=== PATIENT | female | born 2000 | race Caucasian/White ===

== ENCOUNTER 2018-12-09 16:32 | Emergency (ER) | payer OTHER ==
[2018-12-09] MEDS ORDERED: BENADRYL 50 MG/ML IM ONE (16:51)
--- NOTE | 2018-12-09 17:02 | ERPHSYRPT ---
- History of Present Illness Time Seen by Provider: 12/09/18 16:55 Source: patient Exam Limitations: clinical condition Physician History: PATIENT AWAKENED WITH RASH AND ITCHING. DENIES DIFFICULTY BREATHING OR SWALLOWING. HAS UNKNOWN EXPOSURE. HAS HAD RECENT POSITIVE URINE TEST. HAS HAD MINIMAL RESPONSE TO HYDROCORTISONE CREAM. Timing/Duration: today Quality: itchy Severity: moderate Location: torso, extremities Possible Causes: no cause identified Modifying Factors: Improves With: topical steriods Associated Symptoms: change in skin texture Allergies/Adverse Reactions: No Known Drug Allergies Allergy (Unverified 12/09/18 16:43) Home Medications: No Reportable Medications [No Reported Medications] 12/09/18 [History] - Review of Systems Constitutional: No Symptoms, No Fever, No Chills Eyes: No Symptoms Ears, Nose, & Throat: No Symptoms Respiratory: No Symptoms, No Cough, No Dyspnea Cardiac: No Symptoms, No Chest Pain, No Edema, No Syncope Abdominal/Gastrointestinal: Constipation, No Abdominal Pain, No Nausea, No Vomiting, No Diarrhea Genitourinary Symptoms: No Symptoms, No Dysuria Musculoskeletal: No Symptoms, No Back Pain, No Neck Pain Skin: Skin Lesions, No Rash Neurological: No Dizziness, No Focal Weakness, No Sensory Changes Psychological: No Symptoms Endocrine: No Symptoms All Other Systems: Reviewed and Negative - Nursing Vital Signs Nursing Vital Signs: Initial Vital Signs Temperature 98.5 F 12/09/18 16:37 Pulse Rate 101 H 12/09/18 16:37 Respiratory Rate 16 12/09/18 16:37 Blood Pressure 103/73 12/09/18 16:37 O2 Sat by Pulse Oximetry 97 12/09/18 16:37 Pain Scale Pain Intensity 0 - Physical Exam General Appearance: no apparent distress Eye Exam: PERRL/EOMI Ears, Nose, Throat Exam: normal ENT inspection Neck Exam: normal inspection Respiratory Exam: normal breath sounds Cardiovascular Exam: regular rate/rhythm Back Exam: normal inspection Extremity Exam: normal inspection, normal range of motion Neurologic Exam: alert, oriented x 3 Skin Exam: other (RAISED ERYTHEMATOUS LESIONS OVER LEGS) Ordered Tests: Active Orders 24 hr Category Date Time Status HCG,QUALITATIVE URINE Stat Lab 12/09/18 17:15 Completed UA W/RFX UR CULTURE Stat Lab 12/09/18 17:15 Completed Medication Summary Discontinued Medications Generic Name Dose Route Start Last Admin Trade Name Freq PRN Reason Stop Dose Admin Diphenhydramine HCl 50 mg 12/09/18 16:51 12/09/18 17:12 Benadryl 50 Mg/Ml IM 12/09/18 16:52 50 mg STAT ONE Administration Diphenhydramine HCl Confirm 12/09/18 17:05 Benadryl 50 Mg/Ml Administered 12/09/18 17:06 Dose 50 mg .ROUTE .STK-MED ONE Lab/Rad Data: Laboratory Results 12/09/18 12/09/18 Range/Units 17:15 17:15 Urine Color JUAN (YELLOW) Urine Appearance SLIGHTLY CLOUDY (CLEAR) Urine pH 6.0 (5-6) Ur Specific [place] 1.023 (1.005-1.025) Urine Protein 30 (Negative) Urine Ketones TRACE (NEGATIVE) Urine Blood NEGATIVE (0-5) Guillermo/ul Urine Nitrite NEGATIVE (NEGATIVE) Urine Bilirubin NEGATIVE (NEGATIVE) Urine Urobilinogen 4 (0-1) mg/dL Ur Leukocyte Esterase NEGATIVE (NEGATIVE) Urine WBC (Auto) 3-5 (0-5) /HPF Urine RBC (Auto) 11-15 (0-2) /HPF U Epithel Cells (Auto) FEW (FEW) /HPF Urine Bacteria (Auto) RARE (NEGATIVE) /HPF Urine Mucus (Auto) SLIGHT (NEGATIVE) /HPF Urine Culture Reflexed NO (NO) Urine Glucose NEGATIVE (NEGATIVE) mg/dL Urine HCG, Qual POSITIVE (Negative) - Progress Progress Note: 12/09/18 17:02 BENADRYL 50MG IM 12/09/18 18:21, URINE NEGATIVE, POSITIVE URINE PREG Counseled pt/family regarding: lab results, diagnosis, need for follow-up - Departure Departure Disposition: Home, Extended Care Facility Clinical Impression: ALLERGIC REACTION, Condition: Stable Critical Care Time: No Referrals: MAXWELL PAN [Primary Care Provider] - Additional Instructions: TAKE OVER THE COUNTER BENADRYL 50MG EVERY 4 HOURS FOR ITCHING. CONSULT YOUR PRIMARY CARE PROVIDER FOR EVALUATION OF RASH AND .
[2018-12-09] MEDS ORDERED: BENADRYL 50 MG/ML ONE (17:05)
[2018-12-09 17:16] VITALS: O2SAT 98
[2018-12-09 17:58] LABS: Appearance SLIGHTLY CLOUDY (CLEAR); Bacteria RARE /HPF (NEGATIVE); Bilirubin NEGATIVE (NEGATIVE); Blood NEGATIVE Ery/ul (0-5); Epithelial Cells FEW /HPF (FEW); Glucose NEGATIVE (NEGATIVE); Ketones TRACE (NEGATIVE); Leukocyte Esterase NEGATIVE (NEGATIVE); Mucus SLIGHT /HPF (NEGATIVE); Nitrite NEGATIVE (NEGATIVE); Protein,Urine Dip 30 (Negative); Specific Gravity 1.023 (1.005-1.025); Urobilinogen 4 mg/dL (0-1)
[2018-12-09 18:31] VITALS: BP 112/60; PULSE 84
== END 2018-12-09 18:32 | disposition home or self-care (01) ==
LOC: ED 16:32
DX: R21 Rash and other nonspecific skin eruption (principal); T78.40XA Allergy, unspecified, initial encounter; Z33.1 Pregnant state, incidental
CPT/HCPCS: 81001; 84703; 96372; 99283; J1200

== ENCOUNTER 2019-02-14 15:31 | Emergency (ER) | payer OTHER | END 2019-02-14 16:00 | disposition left against medical advice (07) | LOC: ED 15:31 | DX: Z53.9 Procedure and treatment not carried out, unspecified reason (principal) | CPT/HCPCS: 99281 ==

== ENCOUNTER 2019-02-27 18:06 | Emergency (ER) | payer OTHER ==
--- NOTE | 2019-02-27 18:35 | ERPHSYRPT ---
- History of Present Illness Source: patient Exam Limitations: no limitations Physician History: Patient has had dysuria and bilateral lower abdominal discomfort for the past 20 hours. Patient is with LMP 10/25/2018. Timing/Duration: hour(s) (20) Activites at Onset: none Quality: aching Onset Location: suprapubic Pain Radiation: none Severity of Pain-Max: moderate Severity of Pain-Current: moderate Prior abdominal problems: none Sexual intercourse history: single partner Modifying Factors: Improves With: nothing Associated Symptoms: abdominal pain, dysuria, , No fever, No chills, No diaphoresis, No nausea, No vomiting, No polyuria, No urinary frequency, No loss of bladder control, No lower back pain, No swelling, No syncope, No vaginal discharge, No vaginal fluid leakage Allergies/Adverse Reactions: No Known Drug Allergies Allergy (Verified 02/27/19 18:35) Home Medications: Vits W-Ca,Fe,FA(<1Mg) [] 1 each PO DAILY 02/27/19 [History] Hx Tetanus, Diphtheria Vaccination/Date Given: No Hx Influenza Vaccination/Date Given: Yes Hx Pneumococcal Vaccination/Date Given: No - Review of Systems Constitutional: No Fever, No Chills Eyes: No Symptoms, No Vision Changes Ears, Nose, & Throat: No Symptoms, No Nose Congestion, No Throat Pain Respiratory: No Cough, No Dyspnea Cardiac: No Chest Pain, No Edema, No Syncope Abdominal/Gastrointestinal: Abdominal Pain, No Nausea, No Vomiting, No Diarrhea Genitourinary Symptoms: Dysuria, , No Frequency, No Hematuria, No Flank Pain, No Vaginal Bleeding, No Vaginal Discharge, No Vaginal Itching Musculoskeletal: No Back Pain, No Neck Pain Skin: No Rash Neurological: No Dizziness, No Focal Weakness, No Sensory Changes Psychological: No Symptoms Endocrine: No Symptoms Hematologic/Lymphatic: No Easy Bleeding, No Easy Bruising All Other Systems: Reviewed and Negative - Past Medical History Pertinent Past Medical History: No - Past Surgical History Past Surgical History: No - Social History Smoking Status: Former smoker Exposure to second hand smoke: No Drug Use: none Patient Lives Alone: No - Nursing Vital Signs Nursing Vital Signs: Initial Vital Signs Temperature 98.6 F 02/27/19 18:22 Pulse Rate 82 02/27/19 18:22 Respiratory Rate 16 02/27/19 18:22 Blood Pressure 97/66 02/27/19 18:22 O2 Sat by Pulse Oximetry 100 02/27/19 18:22 Pain Scale Pain Intensity 9 - Physical Exam General Appearance: no apparent distress, alert Eye Exam: PERRL/EOMI, eyes nml inspection Ears, Nose, Throat Exam: normal ENT inspection, TMs normal, pharynx normal, moist mucous membranes Neck Exam: normal inspection, non-tender, supple, full range of motion Respiratory Exam: normal breath sounds, lungs clear, No respiratory distress Cardiovascular Exam: regular rate/rhythm, normal heart sounds, normal peripheral pulses Gastrointestinal/Abdomen Exam: soft, normal bowel sounds, No tenderness, No mass , No guarding, No rebound Back Exam: normal inspection, normal range of motion, No CVA tenderness, No vertebral tenderness Extremity Exam: normal inspection, normal range of motion, pelvis stable Neurologic Exam: alert, oriented x 3, cooperative, pharmacy tech II-XII nml as tested, normal mood/affect, sensation nml, No motor deficits Skin Exam: normal color, warm, dry, No rash, No jaundice, No cyanosis Lymphatic Exam: No adenopathy SpO2 Interpretation: normal O2 Delivery: Room Air Ordered Tests: Active Orders 24 hr Category Date Time Status Heart Tones-ED STAT Care 02/27/19 18:23 Active CULTURE,URINE Stat Lab 02/27/19 19:41 Received UA W/RFX UR CULTURE Stat Lab 02/27/19 19:41 Completed Medication Summary Discontinued Medications Generic Name Dose Route Start Last Admin Trade Name Freq PRN Reason Stop Dose Admin Cephalexin HCl 500 mg 02/27/19 20:22 02/27/19 20:25 Keflex 500 Mg PO 02/27/19 20:23 500 mg STAT ONE Administration Cephalexin HCl Confirm 02/27/19 20:23 Keflex 500 Mg Administered 02/27/19 20:24 Dose 500 mg .ROUTE .STK-MED ONE Lab/Rad Data: Laboratory Results 02/27/19 Range/Units 19:41 Urine Color JUAN (YELLOW) Urine Appearance TURBID (CLEAR) Urine pH 7.0 (5-6) Ur Specific [place] 1.012 (1.005-1.025) Urine Protein NEGATIVE (Negative) Urine Ketones TRACE (NEGATIVE) Urine Blood NEGATIVE (0-5) Guillermo/ul Urine Nitrite NEGATIVE (NEGATIVE) Urine Bilirubin NEGATIVE (NEGATIVE) Urine Urobilinogen NEGATIVE (0-1) mg/dL Ur Leukocyte Esterase LARGE (NEGATIVE) Urine WBC (Auto) 11-15 (0-5) /HPF Urine RBC (Auto) 3-5 (0-2) /HPF U Epithel Cells (Auto) PACKED (FEW) /HPF Urine Bacteria (Auto) MANY (NEGATIVE) /HPF Amorphous Crystals MODERATE (NEGATIVE) /HPF Urine Mucus (Auto) SLIGHT (NEGATIVE) /HPF Urine Yeast (Budding) Rare (NEGATIVE) /HPF Urine Culture Reflexed YES (NO) Urine Glucose NEGATIVE (NEGATIVE) mg/dL - Progress Progress: improved Air Movement: good Progress Note: 02/27/19 18:41 Patient is 17 weeks 6 days by LMP calculation 02/27/19 20:[address] Carson, OB covering for Dr Leigh. Dr Carson agreed with cephalexin and agreed with patient able to be discharged home with follow-up in 2 days in the office. 02/27/19 20:28 No abdominal pain on repeat evaluation on history or examination Blood Culture(s) Obtained: No Antibiotics given: Yes Discussed with .: Xu Will see patient in: office Counseled pt/family regarding: lab results, diagnosis, need for follow-up - Departure Departure Disposition: Home Clinical Impression: Acute cystitis during in second trimester, with suprapubic pain, antepartum Condition: Good Critical Care Time: No Referrals: YUSRA LEIGH [Primary Care Provider] - Instructions: Urinary Tract Infections in Adults, Stomach Pain in Early , Round Ligament Pain Prescriptions: Cephalexin Mh 500 mg [Keflex 500 mg] 500 mg PO TID #15 capsule Vit37/Iron/Folic Acid [P[place]ata Chewable Tablet] 1 each PO QAM #30 tab.chew
[2019-02-27 18:42] VITALS: O2SAT 100
[2019-02-27 20:02] LABS: Amourphous Crystal MODERATE /HPF (NEGATIVE); Appearance TURBID (CLEAR); Bacteria MANY /HPF (NEGATIVE); Bilirubin NEGATIVE (NEGATIVE); Blood NEGATIVE Ery/ul (0-5); Epithelial Cells PACKED /HPF (FEW); Glucose NEGATIVE (NEGATIVE); Ketones TRACE (NEGATIVE); Leukocyte Esterase LARGE (NEGATIVE); Mucus SLIGHT /HPF (NEGATIVE); Nitrite NEGATIVE (NEGATIVE); Protein,Urine Dip NEGATIVE (Negative); Specific Gravity 1.012 (1.005-1.025); Urobilinogen NEGATIVE mg/dL (0-1)
[2019-02-27 20:04] LABS: Budding Yeast Rare /HPF (NEGATIVE)
[2019-02-27] MEDS ORDERED: KEFLEX 500 MG PO ONE (20:22)
[2019-02-27] MEDS ORDERED: KEFLEX 500 MG ONE (20:23)
[2019-02-27 20:42] VITALS: BP 122/66; PULSE 78
[2019-02-27 21:21] LABS: CHLAMYDIA URINE NEGATIVE (NEGATIVE); GC URINE NEGATIVE (NEGATIVE)
== END 2019-02-27 20:42 | disposition home or self-care (01) ==
LOC: ED 18:06
DX: O23.12 Infections of bladder in pregnancy, second trimester (principal); R10.33 Periumbilical pain
CPT/HCPCS: 81001; 87077; 87086; 87186; 87491; 87591; 99284; A9270-GY

== ENCOUNTER 2019-05-12 18:45 | Observation (INO) | payer OTHER ==
[2019-05-12 19:38] VITALS: O2SAT 99
[2019-05-12 19:45] LABS: Appearance CLOUDY (CLEAR); Bacteria FEW /HPF (NEGATIVE); Bilirubin NEGATIVE (NEGATIVE); Blood NEGATIVE Ery/ul (0-5); Calcium Oxalate Crystals 26-50 /HPF (NEGATIVE); Epithelial Cells FEW /HPF (FEW); Glucose NEGATIVE (NEGATIVE); Ketones NEGATIVE (NEGATIVE); Leukocyte Esterase TRACE (NEGATIVE); Mucus SLIGHT /HPF (NEGATIVE); Nitrite NEGATIVE (NEGATIVE); Protein,Urine Dip NEGATIVE (Negative); RBC 0-2 /HPF (0-2); Specific Gravity 1.017 (1.005-1.025); Urobilinogen 2 mg/dL (0-1)
[2019-05-12 19:49] LABS: Amphetamine,Urine NEGATIVE (NEGATIVE); Barbiturate,Urine NEGATIVE (NEGATIVE); Benzodiazepine,Urine NEGATIVE (NEGATIVE); Cocaine,Urine NEGATIVE (NEGATIVE); Methadone,Urine NEGATIVE (NEGATIVE); Opiate,Urine NEGATIVE (NEGATIVE); PCP,Urine NEGATIVE (NEGATIVE); THC,Urine POSITIVE (NEGATIVE)
[2019-05-12] MEDS ORDERED: ROCEPHIN 1 Gm-D5w 50 ml Bag** 1 G/50 ML IVPB IV ONE (21:14)
[2019-05-12] MEDS ORDERED: Lactated Ringers 1,000 ML IV ONE ×2 (21:14→21:24)
[2019-05-13 01:27] VITALS: BP 107/72; PULSE 93
== END 2019-05-12 23:40 | disposition home or self-care (01) ==
LOC: OB 18:45
PROVIDERS: ADMIT Family Medicine; ATTEND Family Medicine
DX: Z34.03 Encounter for supervision of normal first pregnancy, third trimester (principal)
CPT/HCPCS: 80307; 81001; 87086; G0378; J0696

== ENCOUNTER 2019-06-13 15:37 | Observation (INO) | payer OTHER ==
[2019-06-13 16:27] VITALS: BP 115/79; PULSE 88
[2019-06-13 16:33] LABS: Appearance CLOUDY (CLEAR); Bacteria MODERATE /HPF (NEGATIVE); Bilirubin NEGATIVE (NEGATIVE); Blood NEGATIVE Ery/ul (0-5); Epithelial Cells MANY /HPF (FEW); Glucose NEGATIVE (NEGATIVE); Ketones NEGATIVE (NEGATIVE); Leukocyte Esterase MODERATE (NEGATIVE); Mucus MODERATE /HPF (NEGATIVE); Nitrite NEGATIVE (NEGATIVE); Protein,Urine Dip 30 (Negative); Specific Gravity 1.021 (1.005-1.025); Urobilinogen 4 mg/dL (0-1)
--- NOTE | 2019-06-13 17:00 | XRAY ---
Indication: labor. Cervical length. Limited two-dimensional transvaginal pelvic sonogram performed to evaluate cervical length. Cervix is closed measuring 3.6 cm in length.
== END 2019-06-13 17:51 | disposition home or self-care (01) ==
LOC: MED SURG 15:37 → OB 15:38
PROVIDERS: ADMIT Family Medicine; ATTEND Family Medicine
DX: Z34.03 Encounter for supervision of normal first pregnancy, third trimester (principal)
CPT/HCPCS: 76817; 81001; 81003; 82731; 87086; G0378

== ENCOUNTER 2019-07-23 06:40 | Inpatient (IN) | payer OTHER ==
[2019-07-23 11:01] LABS: Amphetamine,Urine NEGATIVE (NEGATIVE); Barbiturate,Urine NEGATIVE (NEGATIVE); Benzodiazepine,Urine NEGATIVE (NEGATIVE); Cocaine,Urine NEGATIVE (NEGATIVE); Methadone,Urine NEGATIVE (NEGATIVE); Opiate,Urine NEGATIVE (NEGATIVE); PCP,Urine NEGATIVE (NEGATIVE); THC,Urine NEGATIVE (NEGATIVE)
[2019-07-23] MEDS ORDERED: TYLENOL EXTRA STRENGTH 500 MG PO STA (11:15)
[2019-07-23] MEDS ORDERED: OMNIPEN 2 GM / NACL 100ML 100 ML IV ONE (12:56)
[2019-07-23] MEDS ORDERED: XYLOCAINE 1% HCL 20 ML MDV IJ PRN (12:56)
[2019-07-23] MEDS ORDERED: PITOCIN 30 UNITS/ LR 500 ML 500 ML IV SCH (13:00)
[2019-07-23] MEDS ORDERED: Ephedrine Sulfate 50 MG/ML IV PRN (13:18)
[2019-07-23] MEDS ORDERED: Lactated Ringers 1,000 ML IV ONE (13:18)
[2019-07-23 13:41] LABS: Absolute Neutrophil Ct (ANC) 8.14 (1.4-6.9); BASOPHIL % 0.2 % (0.0-0.4); Basophil (Absolute #) 0.02 (0-0.4); Eosinophil % 0.4 % (0.00-5.0); Eosinophil (Absolute #) 0.04 (0-0.5); Hemoglobin 12.2 gm/dl (12.0-16.0); Lymphocyte (Absolute #) 1.42 (1.0-4.6); Lymphocytes % 13.9 % (24.0-44.0); Mean Cell Volume 91.4 fl (78-100); Mean Corpuscular Hemoglobin 30.1 pg (26-32); Mean Platelet Volume 12.1 fl (7.5-11.0); Monocyte (Absolute #) 0.61 (0.0-1.3); Neutrophil % 79.5 % (36.0-66.0); Platelet Count 235 K/mm3 (150-450); Red Blood Count 4.05 M/mm3 (4.1-5.4); Red Cell Distribution Width 13.2 % (11.5-14.0); White Blood Count 10.2 K/mm3 (4.0-10.5)
[2019-07-23] MEDS: OB EPIDURAL NAROPIN/SUFENTANIL IN NACL EPIDURAL PRN (13:54)
[2019-07-23] MEDS: Lactated Ringers 1,000 ML IV SCH ×2 (13:54→20:55)
[2019-07-23 16:30] LABS: ALKALINE PHOSPHATASE 182 U/L (38-126); ANION GAP 10.1 MEQ/L (5-15); BLOOD UREA NITROGEN 8 mg/dL (7-17); CHLORIDE 107 mmol/L (98-107); Calcium 8.4 mg/dL (8.4-10.2); Carbon Dioxide 23 mmol/L (22-30); Creatinine 1 0.51 mg/dL (0.52-1.04); Glucose 77 mg/dL (74-106); Potassium 3.6 mmol/L (3.5-5.1); SGOT/AST 14 U/L (14-36); SGPT/ALT 8 U/L (0-35); SODIUM 137 mmol/L (137-145); Total Protein 6.1 g/dL (6.3-8.2)
[2019-07-23 17:09] VITALS: O2SAT 98
[2019-07-23] MEDS: OMNIPEN 1GM / NaCl 100ML 100 ML IV SCH (20:56)
[2019-07-24] MEDS: OB EPIDURAL NAROPIN/SUFENTANIL IN NACL EPIDURAL PRN (00:14)
[2019-07-24] MEDS: Lactated Ringers 1,000 ML IV SCH (01:07)
[2019-07-24] MEDS: OMNIPEN 1GM / NaCl 100ML 100 ML IV SCH (01:07)
[2019-07-24] MEDS ORDERED: TRANDATE 100 MG/20 ML MDV FOR DRIP IV ONE (01:54)
[2019-07-24] MEDS: TRANDATE 20 MG/5 ML SYRINGE IV PRN ×2 (02:00→07:26)
[2019-07-24] MEDS ORDERED: TRANDATE 20 MG/5 ML SYRINGE IV SCH (02:00)
[2019-07-24] MEDS ORDERED: APRESOLINE 20 MG/ML INJ IV ONE (04:00)
[2019-07-24] MEDS ORDERED: MOTRIN 400 MG ONE (07:24)
[2019-07-24] MEDS: MOTRIN 400 MG PO PRN ×2 (07:29→16:42)
[2019-07-24] MEDS ORDERED: TRANDATE 100 MG/20 ML MDV FOR DRIP IV PRN (07:43)
[2019-07-24] MEDS ORDERED: OMNIPEN 1GM / NaCl 100ML 100 ML IV SCH (08:00)
[2019-07-24 17:51] LABS: Basophil (Absolute #) 0 (0-0.4); Eosinophil % 0.2 % (0.00-5.0); Eosinophil (Absolute #) 0.03 (0-0.5); Hematocrit 30.4 % (35-47); Hemoglobin 9.7 gm/dl (12.0-16.0); Lymphocyte (Absolute #) 1.61 (1.0-4.6); Lymphocytes % 10.1 % (24.0-44.0); Mean Cell Volume 92.1 fl (78-100); Mean Corpuscular Hemoglobin 29.4 pg (26-32); Mean Corpuscular Hgb Concent. 31.9 g/dl (32-36); Mean Platelet Volume 11.9 fl (7.5-11.0); Monocytes % 6.9 % (0.0-12.0); Neutrophil % 82.8 % (36.0-66.0); Platelet Count 197 K/mm3 (150-450); White Blood Count 15.9 K/mm3 (4.0-10.5)
[2019-07-24 19:19] VITALS: BP 131/90; PULSE 108
== END 2019-07-24 18:56 | disposition home or self-care (01) | DRG 807 ==
LOC: OB 06:40 → OBSVTOIN 12:55
PROVIDERS: ADMIT Family Medicine; ATTEND Family Medicine
PROC: 10E0XZZ Delivery of Products of Conception, External Approach (ICD-10-PCS; principal; 2019-07-24)
PROC: 0KQM0ZZ Repair Perineum Muscle, Open Approach (ICD-10-PCS; 2019-07-24)
DX: O70.1 Second degree perineal laceration during delivery (principal); Z37.0 Single live birth; Z3A.38 38 weeks gestation of pregnancy
CPT/HCPCS: 36415; 80053; 80307; 81002; 83986; 85025; 87340; G0378; J0290; J2590; J2795; A9270-GY

== ENCOUNTER 2019-11-15 15:03 | Emergency (ER) | payer OTHER ==
--- NOTE | 2019-11-15 15:52 | ERPHSYRPT ---
- History of Present Illness Time Seen by Provider: 11/15/19 15:18 Source: patient Exam Limitations: other (Poor historian) Patient Subjective Stated Complaint: pt alert, walked in, resp easy, skin w/d/ p. moves all ext well, she she states she just wants rx for meds, she has bruising to front of neck she states is from pinchng herself, she does admit to telling [employer]PS she wanted to kill herself, but she denies wanted to harm self now or anyone else, Triage Nursing Assessment: .pt here for being out of her meds and thinks she needs her medications increased, her grandmother helped check her in and she stated that pt tried to chock herself. grandmother also states that in front of CPS she threatented to kill herself, she says she is depressed about her dad dying in 2016. but is excited about her job interview and job Physician History: 19 yo wf mentally challenged pt w h/o depression presents w worsening depression and suicidal ideation relating to situational problems. She lives w her SO's family and denies any physical/sexual abuse. She has an eccymotic area on her anterior neck. Timing/Duration: yesterday Severity of Symptoms-Max: moderate Severity of Symptoms-Current: moderate Context related to: significant other Suicidal thoughts: attempt, specific plan Associated Symptoms: depressed, suicidal ideation Previous symptoms: other (h/o depression under psychiatric care) Allergies/Adverse Reactions: peanut Allergy (Verified 05/12/19 20:04) Home Medications: Sertraline HCl [Zoloft] 50 mg DAILY 11/15/19 [History] Hx Tetanus, Diphtheria Vaccination/Date Given: No Hx Influenza Vaccination/Date Given: Yes Hx Pneumococcal Vaccination/Date Given: No Immunizations Up to Date: Yes Travel Risk - International Travel Have you traveled outside of the country in past 3 weeks: No Have you or anyone close to you been diagnosed with or: No Do your reside in a community with a known COVID-19 case?: Yes If Yes where:: [facility] - Coronavirus Screening Has patient experienced Coronavirus symptoms: No - Past Medical History Pertinent Past Medical History: Yes Neurological History: No Pertinent History ENT History: No Pertinent History, Other Cardiac History: No Pertinent History Respiratory History: No Pertinent History Endocrine Medical History: No Pertinent History Musculoskeletal History: No Pertinent History GI Medical History: No Pertinent History History: No Pertinent History Psycho-Social History: Attention Deficit Disorder, Depression Female Reproductive Disorders: No Pertinent History - Past Surgical History Past Surgical History: No Neuro Surgical History: No Pertinent History Cardiac: No Pertinent History Respiratory: No Pertinent History Gastrointestinal: No Pertinent History Genitourinary: No Pertinent History Musculoskeletal: No Pertinent History Female Surgical History: No Pertinent History - Social History Smoking Status: Current every day smoker How long have you smoked: 5 years Exposure to second hand smoke: Yes Drug Use: marijuana Patient Lives Alone: No Significant Family History: no pertinent family hx - Female History Hx Last Menstrual Period: now Hx Now: No - Review of Systems Constitutional: No Fever, No Chills Eyes: No Symptoms Ears, Nose, & Throat: No Symptoms Respiratory: No Cough, No Dyspnea Cardiac: No Chest Pain, No Edema, No Syncope Abdominal/Gastrointestinal: No Abdominal Pain, No Nausea, No Vomiting, No Diarrhea Genitourinary Symptoms: No Dysuria Musculoskeletal: No Back Pain, No Neck Pain Skin: No Rash Neurological: Irritability Psychological: Depression, Suicidal Ideations Endocrine: No Symptoms Hematologic/Lymphatic: No Symptoms Immunological/Allergic: No Symptoms - Nursing Vital Signs Nursing Vital Signs: Initial Vital Signs Temperature 97.9 F 11/15/19 15:21 Pulse Rate 97 H 11/15/19 15:21 Respiratory Rate 18 11/15/19 15:21 Blood Pressure 117/80 11/15/19 15:21 O2 Sat by Pulse Oximetry 97 11/15/19 15:21 Pain Scale Pain Intensity 0 - Physical Exam General Appearance: no apparent distress Eyes, Ears, Nose, Throat Exam: normal ENT inspection Neck Exam: other (Ecchymotic area anterior neck) Respiratory Exam: normal breath sounds, lungs clear, No chest tenderness, No respiratory distress Cardiovascular Exam: regular rate/rhythm, normal heart sounds, normal peripheral pulses, No murmur, No tachycardia Gastrointestinal/Abdominal Exam: soft, normal bowel sounds, No tenderness Extremities Exam: normal inspection, No normal range of motion, No evidence of injury Current Suicidality: has suicide plan, other (Ecchymotic area on neck) Neurological Exam: alert, subscription agent II-XII nml as tested, oriented x 3, depressed affect Appearance: appropriate appearance Behavior/Eye Contact/Speech: alert & cooperative, agitated Thoughts/Hallucinations: normal thought pattern Skin Exam: normal color, warm, dry, No rash SpO2 Interpretation: normal SpO2: 97 O2 Delivery: Room Air Ordered Tests: Active Orders 24 hr Category Date Time Status Psychiatric Consult STAT Cons 11/15/19 15:18 Active House Regular Diet Diet 11/16/19 Breakfast Active ACETAMINOPHEN Stat Lab 11/15/19 15:40 Completed CBC W DIFF Stat Lab 11/15/19 15:40 Completed CMP Stat Lab 11/15/19 15:40 Completed ETHYL ALCOHOL Stat Lab 11/15/19 15:40 Completed HCG QUALITATIVE,SERUM Stat Lab 11/15/19 15:40 Completed SALICYLATE Stat Lab 11/15/19 15:40 Completed Urine Triage Profile Stat Lab 11/15/19 15:41 Completed Lab/Rad Data: Laboratory Result Diagrams 11/15/19 15:40 11/15/19 15:40 Laboratory Results 11/15/19 11/15/19 11/15/19 Range/Units 15:41 15:40 15:40 WBC (4.0-10.5) K/mm3 RBC (4.1-5.4) M/mm3 Hgb (12.0-16.0) gm/dl Hct (35-47) % MCV (78-100) fl MCH (26-32) pg MCHC (32-36) g/dl RDW (11.5-14.0) % Plt Count (150-450) K/mm3 MPV (7.5-11.0) fl Gran % (36.0-66.0) % Eos # (Auto) (0-0.5) Absolute Lymphs (auto) (1.0-4.6) Absolute Monos (auto) (0.0-1.3) Lymphocytes % (24.0-44.0) % Monocytes % (0.0-12.0) % Eosinophils % (0.00-5.0) % Basophils % (0.0-0.4) % Absolute Granulocytes (1.4-6.9) Basophils # (0-0.4) Sodium 139 (137-145) mmol/L Potassium 4.2 (3.5-5.1) mmol/L Chloride 105 (98-107) mmol/L Carbon Dioxide 24 (22-30) mmol/L Anion Gap 13.7 (5-15) MEQ/L BUN 11 (7-17) mg/dL Creatinine 0.59 (0.52-1.04) mg/dL Estimated GFR > 60.0 ML/MIN Glucose 90 (74-106) mg/dL Calcium 9.0 (8.4-10.2) mg/dL Total Bilirubin 0.70 (0.2-1.3) mg/dL AST 25 (14-36) U/L ALT 15 (0-35) U/L Alkaline Phosphatase 89 (38-126) U/L Serum Total Protein 7.8 (6.3-8.2) g/dL Albumin 4.4 (3.5-5.0) g/dL Serum , Qual NEGATIVE (Negative) Salicylates < 1.0 L (2-20) mg/dL Urine Opiates Level NEGATIVE (NEGATIVE) Ur Methadone NEGATIVE (NEGATIVE) Acetaminophen < 10 L (10-30) ug/ml Urine Barbiturates NEGATIVE (NEGATIVE) Ur Phencyclidine (PCP) NEGATIVE (NEGATIVE) Urine Amphetamine NEGATIVE (NEGATIVE) U Benzodiazepine Level NEGATIVE (NEGATIVE) Urine Cocaine NEGATIVE (NEGATIVE) Urine Marijuana (THC) NEGATIVE (NEGATIVE) Ethyl Alcohol < 10 (0-10) mg/dL 11/15/19 Range/Units 15:40 WBC 7.4 (4.0-10.5) K/mm3 RBC 4.68 (4.1-5.4) M/mm3 Hgb 13.5 (12.0-16.0) gm/dl Hct 41.8 (35-47) % MCV 89.3 (78-100) fl MCH 28.8 (26-32) pg MCHC 32.3 (32-36) g/dl RDW 13.5 (11.5-14.0) % Plt Count 361 (150-450) K/mm3 MPV 10.4 (7.5-11.0) fl Gran % 67.3 H (36.0-66.0) % Eos # (Auto) 0.19 (0-0.5) Absolute Lymphs (auto) 1.67 (1.0-4.6) Absolute Monos (auto) 0.53 (0.0-1.3) Lymphocytes % 22.6 L (24.0-44.0) % Monocytes % 7.2 (0.0-12.0) % Eosinophils % 2.6 (0.00-5.0) % Basophils % 0.3 (0.0-0.4) % Absolute Granulocytes 4.99 (1.4-6.9) Basophils # 0.02 (0-0.4) Sodium (137-145) mmol/L Potassium (3.5-5.1) mmol/L Chloride (98-107) mmol/L Carbon Dioxide (22-30) mmol/L Anion Gap (5-15) MEQ/L BUN (7-17) mg/dL Creatinine (0.52-1.04) mg/dL Estimated GFR ML/MIN Glucose (74-106) mg/dL Calcium (8.4-10.2) mg/dL Total Bilirubin (0.2-1.3) mg/dL AST (14-36) U/L ALT (0-35) U/L Alkaline Phosphatase (38-126) U/L Serum Total Protein (6.3-8.2) g/dL Albumin (3.5-5.0) g/dL Serum , Qual (Negative) Salicylates (2-20) mg/dL Urine Opiates Level (NEGATIVE) Ur Methadone (NEGATIVE) Acetaminophen (10-30) ug/ml Urine Barbiturates (NEGATIVE) Ur Phencyclidine (PCP) (NEGATIVE) Urine Amphetamine (NEGATIVE) U Benzodiazepine Level (NEGATIVE) Urine Cocaine (NEGATIVE) Urine Marijuana (THC) (NEGATIVE) Ethyl Alcohol (0-10) mg/dL - Progress Progress: unchanged Progress Note: 11/15/19 18:01 [facility] Access evaluated pt per teleconsult. Wants pt discharged for PCP f/u in AM. Pt to call and get appointment w mental health therapist in AM - Departure Departure Disposition: Home Clinical Impression: Depression Condition: Critical Care Time: No Referrals: YUSRA GAVIRIA [Primary Care Provider] -
[2019-11-15 16:06] LABS: Absolute Neutrophil Ct (ANC) 4.99 (1.4-6.9); BASOPHIL % 0.3 % (0.0-0.4); Basophil (Absolute #) 0.02 (0-0.4); Eosinophil % 2.6 % (0.00-5.0); Eosinophil (Absolute #) 0.19 (0-0.5); Hematocrit 41.8 % (35-47); Hemoglobin 13.5 gm/dl (12.0-16.0); Lymphocyte (Absolute #) 1.67 (1.0-4.6); Lymphocytes % 22.6 % (24.0-44.0); Mean Cell Volume 89.3 fl (78-100); Mean Corpuscular Hemoglobin 28.8 pg (26-32); Mean Corpuscular Hgb Concent. 32.3 g/dl (32-36); Mean Platelet Volume 10.4 fl (7.5-11.0); Monocyte (Absolute #) 0.53 (0.0-1.3); Monocytes % 7.2 % (0.0-12.0); Neutrophil % 67.3 % (36.0-66.0); Platelet Count 361 K/mm3 (150-450); Red Blood Count 4.68 M/mm3 (4.1-5.4); Red Cell Distribution Width 13.5 % (11.5-14.0); White Blood Count 7.4 K/mm3 (4.0-10.5)
[2019-11-15 16:14] LABS: ALBUMIN 4.4 g/dL (3.5-5.0); ALKALINE PHOSPHATASE 89 U/L (38-126); ANION GAP 13.7 MEQ/L (5-15); BLOOD UREA NITROGEN 11 mg/dL (7-17); CHLORIDE 105 mmol/L (98-107); Carbon Dioxide 24 mmol/L (22-30); Creatinine 1 0.59 mg/dL (0.52-1.04); Glucose 90 mg/dL (74-106); Potassium 4.2 mmol/L (3.5-5.1); SGOT/AST 25 U/L (14-36); SGPT/ALT 15 U/L (0-35); SODIUM 139 mmol/L (137-145); Total Protein 7.8 g/dL (6.3-8.2)
[2019-11-15 16:16] LABS: ACETAMINOPHEN < 10 ug/ml (10-30); ETHYL ALCOHOL < 10 mg/dL (0-10); SALICYLATE < 1.0 mg/dL (2-20)
[2019-11-15 16:22] LABS: Amphetamine,Urine NEGATIVE (NEGATIVE); Barbiturate,Urine NEGATIVE (NEGATIVE); Benzodiazepine,Urine NEGATIVE (NEGATIVE); Cocaine,Urine NEGATIVE (NEGATIVE); Methadone,Urine NEGATIVE (NEGATIVE); Opiate,Urine NEGATIVE (NEGATIVE); PCP,Urine NEGATIVE (NEGATIVE); THC,Urine NEGATIVE (NEGATIVE)
[2019-11-15 18:08] VITALS: BP 106/76; PULSE 88; O2SAT 98
== END 2019-11-15 18:13 | disposition home or self-care (01) ==
LOC: ED 15:03
DX: F32.9 Major depressive disorder, single episode, unspecified (principal); R45.851 Suicidal ideations; Z72.0 Tobacco use
CPT/HCPCS: 36415; 80053; 80307; 81025; 85025; 90791; 99284; G0480; G0481; Q3014

== ENCOUNTER 2024-01-03 19:16 | Emergency (ER) | payer OTHER ==
[2024-01-03 20:23] VITALS: TEMP 97.3
--- NOTE | 2024-01-03 20:34 | ERPHSYRPT ---
- History of Present Illness Time Seen by Provider: 01/03/24 20:34 Historian: patient Exam Limitations: no limitations Patient Subjective Stated Complaint: pt states "I think I have a stomach ulcer." Triage Nursing Assessment: pt ambulatory to bed by self, pt alert and oriented x3, skin pwd, pt c/o epigastric/upper abd pain since last night, pt has hx of stomach ulcers and states "I think I have another one." last BM was 2 days ago, last oral intake was within the hour, bowel sounds active in all quadrants. Physician History: This is a 23-year-old white female patient who presents with epigastric abdominal gnawing and cramping feeling. Patient has a history of ulcer disease and is not on any medication for it at this time. Patient has not had any nausea vomiting or diarrhea symptoms. She has no chest pain. She has no history of shortness of breath. Timing/Duration: day(s) (2 to 3 days) Quality: aching, cramping, pressure Abdominal Pain Onset Location: epigastric Pain Radiation: no radiation Severity of Pain-Max: mild (To moderate) Severity of Pain-Current: mild Modifying Factors: Improves With: nothing. Worsens With: vomiting Associated Symptoms: denies symptoms Previous symptoms: same symptoms as today, no recent treatment Allergies/Adverse Reactions: peanut Allergy (Verified 01/03/24 20:17) Hx Tetanus, Diphtheria Vaccination/Date Given: No Hx Influenza Vaccination/Date Given: Yes Hx Pneumococcal Vaccination/Date Given: No Travel Risk - International Travel Have you traveled outside of the country in past 3 weeks: No - Emerging Infectious Disease Are you exhibiting symptoms associated with any current EIDs: Yes Symptoms: Abdominal Pain - Review of Systems Constitutional: No Symptoms Eyes: No Symptoms Ears, Nose, & Throat: No Symptoms Respiratory: No Symptoms Cardiac: No Symptoms Abdominal/Gastrointestinal: Abdominal Pain (The gastric) Genitourinary Symptoms: No Symptoms Musculoskeletal: No Symptoms Skin: No Symptoms Neurological: No Symptoms Psychological: No Symptoms Endocrine: No Symptoms Hematologic/Lymphatic: No Symptoms Immunological/Allergic: No Symptoms All Other Systems: Reviewed and Negative - Past Medical History Pertinent Past Medical History: Yes Neurological History: No Pertinent History ENT History: No Pertinent History, Other Cardiac History: No Pertinent History Respiratory History: No Pertinent History Endocrine Medical History: No Pertinent History Musculoskeletal History: No Pertinent History GI Medical History: Ulcer History: No Pertinent History Psycho-Social History: Attention Deficit Disorder, Depression Female Reproductive Disorders: No Pertinent History - Past Surgical History Past Surgical History: No Neuro Surgical History: No Pertinent History Cardiac: No Pertinent History Respiratory: No Pertinent History Gastrointestinal: No Pertinent History Genitourinary: No Pertinent History Musculoskeletal: No Pertinent History Female Surgical History: No Pertinent History Significant Family History: no pertinent family hx - Female History Hx Last Menstrual Period: 12/22/23 Hx Now: No - Social History Smoking Status: Former smoker How long have you smoked: 5 years Exposure to second hand smoke: Yes Drug Use: marijuana Patient Lives Alone: No - Social Determinants of Health Will the patient participate in the screening: Yes Do you worry about a steady place to live?: No Do you have any problems with any of the following?: No known problems In the past 12 months,have you had to go without utilities?: No Transportation Issues: No Has anyone in your support network made you feel unsafe?: No Have you or anyone in your house had to go without enough: No - Nursing Vital Signs Nursing Vital Signs: Initial Vital Signs Temperature 97.3 F 01/03/24 20:17 Pulse Rate 105 H 01/03/24 20:17 Respiratory Rate 18 01/03/24 20:17 Blood Pressure 117/74 01/03/24 20:17 O2 Sat by Pulse Oximetry 99 01/03/24 20:17 Pain Scale Pain Intensity 7 - Physical Exam General Appearance: no apparent distress, alert, anxiety Eye Exam: PERRL/EOMI, eyes nml inspection Ears, Nose, Throat Exam: normal ENT inspection, moist mucous membranes Neck Exam: normal inspection, non-tender, supple, full range of motion Respiratory Exam: normal breath sounds, lungs clear, airway intact, No chest tenderness, No respiratory distress Cardiovascular Exam: regular rate/rhythm, normal heart sounds, normal peripheral pulses Gastrointestinal/Abdomen Exam: soft, normal bowel sounds, tenderness (Very mild epigastric tenderness to palpation), No rebound Pelvic Exam: not done Rectal Exam: not done Back Exam: normal inspection, normal range of motion, No CVA tenderness Extremity Exam: normal inspection, normal range of motion, pelvis stable Neurologic Exam: alert, oriented x 3, cooperative, employment manager II-XII nml as tested, normal mood/affect, nml cerebellar function, nml station & gait, sensation nml Skin Exam: normal color, warm, dry Lymphatic Exam: No adenopathy SpO2 Interpretation: normal SpO2: 99 O2 Delivery: Room Air - Course Nursing assessment & vital signs reviewed: Yes Ordered Tests: Active Orders 24 hr Category Date Time Status IV Insertion STAT Care 01/03/24 20:34 Active ABDOMEN AND PELVIS W/0 CONTRAS [CT] Stat Exams 01/03/24 20:35 Taken AMYLASE Stat Lab 01/03/24 20:50 Completed CBC W DIFF Stat Lab 01/03/24 20:50 Completed CMP Stat Lab 01/03/24 20:50 Completed HCG QUALITATIVE, SERUM Stat Lab 01/03/24 20:50 Completed LIPASE Stat Lab 01/03/24 20:50 Completed UA W/RFX UR CULTURE Stat Lab 01/03/24 22:06 Received Medication Summary Discontinued Medications Generic Name Dose Route Start Last Admin Trade Name Freq PRN Reason Stop Dose Admin Magnesium Hydroxide 45 ml 01/03/24 22:26 Mag Hydrx/Alum Hyd/Simeth/Lido 45 Ml Bottle PO 01/03/24 22:27 STAT ONE Ondansetron HCl 4 mg 01/03/24 20:34 01/03/24 21:23 Ondansetron Hcl 4 Mg/2 Ml Vial IV 01/03/24 20:35 4 mg STAT ONE Administration Ondansetron HCl Confirm 01/03/24 21:22 Ondansetron Hcl 4 Mg/2 Ml Vial Administered 01/03/24 21:23 Dose 4 mg .ROUTE .STK-MED ONE Pantoprazole Sodium 40 mg 01/03/24 20:34 01/03/24 21:23 Pantoprazole 40 Mg Vial IV 01/03/24 20:35 40 mg STAT ONE Administration Pantoprazole Sodium Confirm 01/03/24 21:22 Pantoprazole 40 Mg Vial Administered 01/03/24 21:23 Dose 40 mg IV .STK-MED ONE Lab/Rad Data: Laboratory Result Diagrams 01/03/24 20:50 01/03/24 20:50 Laboratory Results 01/03/24 01/03/24 01/03/24 Range/Units 20:50 20:50 20:50 WBC 10.1 H (3.98-10.04) x10^3/uL RBC 4.03 (3.93-5.22) x10^6/uL Hgb 11.8 (11.2-15.7) g/dL Hct 36.7 (34.1-44.9) % MCV 91.1 (79.4-94.8) fL MCH 29.3 (25.6-32.2) pg MCHC 32.2 (32.2-35.5) g/dL RDW 12.3 (11.7-14.4) % Plt Count 380 H (182-369) x10^3/uL MPV 9.4 (9.4-12.3) fL Gran % 71.2 H (34.0-71.1) % Immature Gran % (Auto) 0.3 (0.001-0.429) % Nucleat RBC Rel Count 0.0 (0.00-0.2) % Eos # (Auto) 0.05 (0.04-0.36) x10^3/uL Immature Gran # (Auto) 0.03 (0.001-0.031) x10^3u/L Absolute Lymphs (auto) 2.01 (1.18-3.74) x10^3/uL Absolute Monos (auto) 0.77 (0.24-0.86) x10^3/uL Absolute Nucleated RBC 0.00 (0.00-0.012) x10^3u/L Lymphocytes % 20.0 (19.3-51.7) % Monocytes % 7.7 (4.7-12.5) % Eosinophils % 0.5 L (0.7-5.8) % Basophils % 0.3 (0.1-1.2) % Absolute Granulocytes 7.17 H (1.56-6.13) x10^3/uL Basophils # 0.03 (0.01-0.08) x10^3/uL Sodium 138 (135-145) mmol/L Potassium 4.4 (3.5-5.1) mmol/L Chloride 107 (98-107) mmol/L Carbon Dioxide 26 (22-30) mmol/L Anion Gap 10.2 (5-15) MEQ/L BUN 12 (7-17) mg/dL Creatinine 0.69 (0.52-1.04) mg/dL Estimated GFR 123.4 ML/MIN Glucose 92 (74-106) mg/dL Calcium 9.5 (8.4-10.2) mg/dL Total Bilirubin 1.00 (0.2-1.3) mg/dL AST 18 (14-36) U/L ALT 13 (0-35) U/L Alkaline Phosphatase 71 (38-126) U/L Serum Total Protein 7.5 (6.3-8.2) g/dL Albumin 4.2 (3.5-5.0) g/dL Amylase 80 (30-110) U/L Lipase 78 (23-300) U/L Serum HCG, Qual NEGATIVE (NEGATIVE) - Progress Progress: improved, re-examined Progress Note: 01/03/24 22:33 Medical decision making and the assignment of moderate complexity to this patient's medical issue is based on review of the patient's past medical history, review of the patient's medication list, review of patient drug allergy list, history present illness and physical findings on examination. The workup in this patient includes placement of intravenous line, infusion of normal saline solution, fusion of Protonix, infusion of Zofran, CBC, CMP, amylase, lipase, urinalysis, test, CT scan of the abdomen pelvis without contrast. Differential diagnosis includes but is not limited to peptic ulcer disease, gastritis, pancreatitis, colitis, appendicitis, cholecystitis Counseled pt/family regarding: lab results, diagnosis, need for follow-up, rad results Medical Desision Making - Diagnostic Testing Diagnostic test were ordered, analyzed, and reviewed by me: Yes Radiological Interpretation: Reviewed by me, Teleradiologist Report - Risk of complications The pt has a mod risk of morbidity or mortality based on: Need for prescription drug management - Departure Departure Disposition: Home Clinical Impression: Epigastric discomfort Condition: Stable Critical Care Time: No Additional Instructions: Drink plenty of fluids. Take your medication as prescribed. Avoid fatty greasy spicy foods. Call your primary care provider tomorrow, 01/04/2024, to make arrangements for follow-up appointment for further evaluation management. Prescriptions: Famotidine 20 mg [Pepcid 20 MG] 20 mg PO DAILY #10 tablet
[2024-01-03 20:59] LABS: Absolute Neutrophil Ct (ANC) 7.17 x10^3/uL (1.56-6.13); BASOPHIL % 0.3 % (0.1-1.2); Basophil (Absolute #) 0.03 x10^3/uL (0.01-0.08); Eosinophil % 0.5 % (0.7-5.8); Eosinophil (Absolute #) 0.05 x10^3/uL (0.04-0.36); Hematocrit 36.7 % (34.1-44.9); Hemoglobin 11.8 g/dL (11.2-15.7); IMMATURE GRAN # 0.03 x10^3u/L (0.001-0.031); IMMATURE GRAN % 0.3 % (0.001-0.429); Lymphocyte (Absolute #) 2.01 x10^3/uL (1.18-3.74); Mean Cell Volume 91.1 fL (79.4-94.8); Mean Corpuscular Hemoglobin 29.3 pg (25.6-32.2); Mean Corpuscular Hgb Concent. 32.2 g/dL (32.2-35.5); Mean Platelet Volume 9.4 fL (9.4-12.3); Monocyte (Absolute #) 0.77 x10^3/uL (0.24-0.86); Monocytes % 7.7 % (4.7-12.5); Neutrophil % 71.2 % (34.0-71.1); Platelet Count 380 x10^3/uL (182-369); Red Blood Count 4.03 x10^6/uL (3.93-5.22); Red Cell Distribution Width 12.3 % (11.7-14.4); White Blood Count 10.1 x10^3/uL (3.98-10.04)
[2024-01-03 21:13] LABS: ALBUMIN 4.2 g/dL (3.5-5.0); ANION GAP 10.2 MEQ/L (5-15); Calcium 9.5 mg/dL (8.4-10.2); Creatinine 1 0.69 mg/dL (0.52-1.04); EST GLOMERULAR FILTRATION RATE 123.4 ML/MIN; Potassium 4.4 mmol/L (3.5-5.1); Total Protein 7.5 g/dL (6.3-8.2)
[2024-01-03 21:20] LABS: HCG SERUM TEST NEGATIVE (NEGATIVE)
[2024-01-03] MEDS ORDERED: Zofran 4 MG/2 ML VIAL ONE (21:22)
[2024-01-03] MEDS ORDERED: PROTONIX 40 MG IV IV ONE (21:22)
[2024-01-03] MEDS: Zofran 4 MG/2 ML VIAL IV ONE (21:23)
[2024-01-03] MEDS: PROTONIX 40 MG IV IV ONE (21:23)
[2024-01-03 22:16] LABS: Appearance Cloudy (Clear); Bacteria Moderate /HPF (None Seen); Bilirubin Negative (Negative); Blood Negative (Negative); Epithelial Cells Moderate /HPF (None Seen); Glucose, Urine Negative (Negative); Hyaline Casts NONE SEEN /LPF (0-2); Ketones Negative (Negative); Leukocyte Esterase Small (Negative); Nitrite Positive (Negative); Protein,Urine Dip Negative (Negative); RBC 0-2 /HPF (0-5); Specific Gravity 1.025 (1.005-1.030); WBC 21-50 /HPF (0-5)
[2024-01-03] MEDS ORDERED: MAALOX ES 30 ML UNIT DOSE ONE (22:29)
[2024-01-03] MEDS ORDERED: XYLOCAINE VISCOUS 2% 15 ML CUP ONE (22:29)
[2024-01-03 22:30] LABS: ADD URINE CULTURE? YES (NO)
[2024-01-03] MEDS: GI COCKTAIL 45 ML (Maalox/Lidocaine) PO ONE (22:32)
[2024-01-03 22:36] VITALS: RESP 16
[2024-01-03 22:47] VITALS: BP 110/78; PULSE 80; O2SAT 97
--- NOTE | 2024-01-04 08:40 | XRAY ---
Indication: Abdomen pain. Multiple contiguous axial images obtained through the abdomen and pelvis without contrast. Comparison: None Lung bases clear. Heart not enlarged. Noncontrasted stomach and bowel loops appear nonobstructed. Normal appendix. Mild diffuse scattered colonic fecal debris. No free fluid/air. Remaining liver, gallbladder, pancreas, spleen, adrenal glands, kidneys, ureters, bladder, uterus, and aorta are unremarkable for noncontrast exam. Osseous structures intact. No ventral or inguinal hernias. Impression: Mild diffuse fecal stasis. Remaining CT abdomen/pelvis without contrast exam is normal.
== END 2024-01-03 22:47 | disposition home or self-care (01) ==
LOC: ED 19:16
DX: R10.13 Epigastric pain (principal)
CPT/HCPCS: 36000; 36415; 74176; 80053; 81001; 82150; 83690; 84703; 85025; 87077; 87086; 87186; 96374; 96375; 99284; J2405; A9270-GY